=== PATIENT | female | born 2000 | race Two or more races ===

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

== ENCOUNTER 2022-01-30 18:19 | Emergency (ER) | payer MEDICAID ==
[~2022-01-30] VITALS: Ht 162.6 cm; Wt 92.5 kg
[~2022-01-30 18:19] MED LIST: CEPH500C PO
[2022-01-30] MEDS ORDERED: SODIUM CHLORIDE 0.9% 1,000 ML IV ONE (18:30)
[2022-01-30 18:50] LABS: Eosinophils # (auto) 0.1 10 ^3/uL (0-0.8); Hemoglobin 9.3 g/dL (12.2-16.2); Mean Corpuscular Hemoglobin 21.1 pg (28.0-32.0); Mean Corpuscular Volume 68.9 fL (80.0-100.0); Monocytes # (auto) 0.6 10 ^3/uL (0-1.3); White Blood Cell 5.8 10^3/uL (4.4-10.8)
[2022-01-30 18:57] LABS: Basophils # (auto) 0.1 10 ^3/uL (0-0.2); Basophils % (auto) 1.1 % (0.0-2.0); Eosinophils % (auto) 1.4 % (0.0-7.0); Hematocrit 30.3 % (36.0-46.0); Lymphocytes # (auto) 1.7 10 ^3/uL (0.4-5.4); Lymphocytes % (auto) 28.6 % (10.0-50.0); Mean Corpuscular Hgb Conc. 30.7 g/dL (32.0-36.0); Monocytes % (auto) 11.2 % (0.0-12.0); Neutrophils # (auto) 3.3 10 ^3/uL (1.6-8.6); Neutrophils % (auto) 57.7 % (37.0-80.0); Nucleated Red Blood Cells % 0.1 %
[2022-01-30 19:04] LABS: Albumin 3.8 g/dL (3.4-5.0); Calcium 8.3 mg/dL (8.5-10.1); Potassium 4.1 mmol/L (3.5-5.1)
[2022-01-30 19:07] LABS: BUN/Creatinine Ratio 15.5; Bilirubin, Total 0.2 mg/dL (0.2-1.0); Total Protein 7.8 g/dL (6.4-8.2)
[2022-01-30 20:22] LABS: Urine Bacteria NONE SEEN /hpf (None Seen); Urine Blood Negative /uL (Negative); Urine WBC 2 /hpf (0 - 5)
[2022-01-30] MEDS ORDERED: ONDA-144 PO (20:56)
[2022-01-30 23:00] VITALS: BP 136/75
== END 2022-01-30 23:20 | disposition home or self-care (01) ==
LOC: ER 18:19
DX: K52.9 Noninfective gastroenteritis and colitis, unspecified (principal); Z79.899 Other long term (current) drug therapy
CPT/HCPCS: 36415; 80053; 81001; 84702; 85025; 96360; 99283; J7030

== ENCOUNTER 2022-10-10 20:37 | Emergency (ER) | payer MEDICAID ==
[~2022-10-10] VITALS: Ht 162.6 cm; Wt 89.5 kg
[~2022-10-10 20:37] MED LIST changes: +ONDA-144 PO
[2022-10-10 21:47] LABS: Basophils # (auto) 0 10 ^3/uL (0-0.2); Basophils % (auto) 0.3 % (0.0-2.0); Eosinophils # (auto) 0.1 10 ^3/uL (0-0.8); Eosinophils % (auto) 0.9 % (0.0-7.0); Hematocrit 36.9 % (36.0-46.0); Hemoglobin 12.3 g/dL (12.2-16.2); Lymphocytes # (auto) 2.1 10 ^3/uL (0.4-5.4); Lymphocytes % (auto) 28.5 % (10.0-50.0); Mean Corpuscular Hemoglobin 26.4 pg (28.0-32.0); Mean Corpuscular Hgb Conc. 33.4 g/dL (32.0-36.0); Mean Corpuscular Volume 79.1 fL (80.0-100.0); Monocytes # (auto) 0.5 10 ^3/uL (0-1.3); Monocytes % (auto) 6.2 % (0.0-12.0); Neutrophils # (auto) 4.7 10 ^3/uL (1.6-8.6); Neutrophils % (auto) 64.1 % (37.0-80.0); Nucleated Red Blood Cells % 0.1 %; Red Blood Cells 4.66 10^6/uL (4.0-5.20); Red Cell Distribution Width 24.3 % (11.8-14.3); White Blood Cell 7.4 10^3/uL (4.4-10.8)
[2022-10-10 21:59] LABS: Albumin 3.5 g/dL (3.4-5.0); Calcium 8.9 mg/dL (8.5-10.1); Potassium 3.6 mmol/L (3.5-5.1)
[2022-10-10 22:02] LABS: Bilirubin, Total 0.2 mg/dL (0.2-1.0); Total Protein 7.2 g/dL (6.4-8.2)
[2022-10-10 22:23] LABS: Urine Bacteria FEW /hpf (None Seen); Urine Blood Negative /uL (Negative); Urine Mucus FEW (None Seen); Urine Specific Gravity 1.024 (1.001-1.035); Urine WBC 2 /hpf (0 - 5)
[2022-10-11] MEDS ORDERED: NITR-87 PO (00:48)
[2022-10-11 01:43] VITALS: BP 125/67
== END 2022-10-11 01:45 | disposition home or self-care (01) ==
LOC: ER 20:37
DX: O20.0 Threatened abortion (principal); O23.41 Unspecified infection of urinary tract in pregnancy, first trimester; N39.0 Urinary tract infection, site not specified; Z3A.11 11 weeks gestation of pregnancy
CPT/HCPCS: 36415; 76801; 80053; 81001; 84702; 85025; 86850; 86900; 86901

== ENCOUNTER 2023-01-14 08:19 | Emergency (ER) | payer MEDICAID ==
[~2023-01-14] VITALS: Ht 162.6 cm; Wt 94.9 kg
[~2023-01-14 08:19] MED LIST changes: +NITR-87 PO
[2023-01-14 09:20] VITALS: BP 111/63
[2023-01-14] MEDS ORDERED: AZIT4SOL EACHEYE (09:35)
== END 2023-01-14 09:41 | disposition home or self-care (01) ==
LOC: ER 08:19
DX: H10.89 Other conjunctivitis (principal); B96.89 Other specified bacterial agents as the cause of diseases classified elsewhere; Z79.899 Other long term (current) drug therapy

== ENCOUNTER 2023-04-22 20:41 | Observation (INO) | payer MEDICAID ==
[~2023-04-22 20:41] MED LIST changes: +AZIT4SOL EACHEYE; +PREN-96 PO
== END 2023-04-22 22:15 | disposition home or self-care (01) ==
LOC: LDRP 20:41
PROVIDERS: ADMIT Obstetrics & Gynecology; ATTEND Obstetrics & Gynecology
DX: O62.9 Abnormality of forces of labor, unspecified (principal); Z3A.39 39 weeks gestation of pregnancy
CPT/HCPCS: 59025; 81002; 94760; G0378

== ENCOUNTER 2023-04-23 08:28 | Observation (INO) | payer MEDICAID | END 2023-04-23 11:45 | disposition home or self-care (01) | LOC: LDRP 08:28 | PROVIDERS: ADMIT Obstetrics & Gynecology; ATTEND Obstetrics & Gynecology | DX: O62.9 Abnormality of forces of labor, unspecified (principal); Z3A.39 39 weeks gestation of pregnancy; Z79.899 Other long term (current) drug therapy | CPT/HCPCS: 59025; 81002; 82948; G0378 ==

== ENCOUNTER 2023-04-23 13:43 | Inpatient (IN) | payer MEDICAID ==
[~2023-04-23] VITALS: Ht 162.6 cm; Wt 99.8 kg
[2023-04-23] MEDS ORDERED: PENICILLIN G POT 5MIL/D5 50ML 50 ML IV ONE (14:15)
[2023-04-23] MEDS ORDERED: PHISODERM TOP SOLN 240ML BTL TOP PRN (14:15)
[2023-04-23] MEDS ORDERED: LIDOCAINE 2%HCL (LOCAL ANESTH.) INJ 20ML MDV IJ PRN (14:15)
[2023-04-23] MEDS ORDERED: DERMOPLAST 60ML BOTTLE TOP PRN (14:15)
[2023-04-23] MEDS ORDERED: PROMETHAZINE HCL 25 MG/ML 1ML IM PRN (14:15)
[2023-04-23] MEDS ORDERED: PROMETHAZINE HCL 25 MG/ML 1ML IV PRN ×2 (14:15→19:00)
[2023-04-23 15:44] LABS: Basophils # (auto) 0 10 ^3/uL (0-0.2); Basophils % (auto) 0.3 % (0.0-2.0); Eosinophils # (auto) 0 10 ^3/uL (0-0.8); Hemoglobin 12.8 g/dL (12.2-16.2); Lymphocytes # (auto) 0.8 10 ^3/uL (0.4-5.4); Lymphocytes % (auto) 4.4 % (10.0-50.0); Mean Corpuscular Hemoglobin 30.4 pg (28.0-32.0); Mean Corpuscular Hgb Conc. 33.6 g/dL (32.0-36.0); Mean Corpuscular Volume 90.6 fL (80.0-100.0); Monocytes % (auto) 5.3 % (0.0-12.0); Neutrophils # (auto) 17.1 10 ^3/uL (1.6-8.6); Red Cell Distribution Width 13.2 % (11.8-14.3); White Blood Cell 19.1 10^3/uL (4.4-10.8)
[2023-04-23] MEDS ORDERED: fentaNYL CITRATE 100 MCG/2 ML VL IV ONE ×2 (15:45→18:00)
[2023-04-23] MEDS ORDERED: ePHEDrine SULFATE 50 MG/ML AMP IV ONE (15:45)
[2023-04-23] MEDS ORDERED: NALOXONE HCL 0.4 MG/ML VIAL IV ONE (15:45)
[2023-04-23] MEDS ORDERED: ROPIVACAINE HCL 200 ML EPI SCH (15:45)
[2023-04-23] MEDS ORDERED: LACTATED RINGER'S 1,000 ML IV ONE (15:45)
[2023-04-23 15:58] LABS: Alanine Aminotransferase 15 U/L (7-40); Albumin 3.6 g/dL (3.2-4.8); Alkaline Phosphatase 171 U/L (46-116); Anion Gap 8.7 (5-15); Aspartate Aminotransferase 13 U/L (13-40); Calcium 8.9 mg/dL (8.7-10.4); Carbon Dioxide 24.3 mmol/L (20-30); Chloride 103 mmol/L (98-107); Glucose 102 mg/dL (74-106); Sodium 136 mmol/L (136-145)
[2023-04-23 15:59] LABS: Bilirubin, Total 0.7 mg/dL (0.2-1.0)
[2023-04-23] MEDS ORDERED: TERBUTALINE SULFATE 1 MG/ML 1ML VIAL SC PRN (16:00)
[2023-04-23] MEDS ORDERED: LACT. RINGERS/OXYTOCIN 20UNITS 500 ML IV ONE ×2 (16:00→16:30)
[2023-04-23] MEDS ORDERED: LACT. RINGERS/OXYTOCIN 20UNITS 1,000 ML IV SCH (16:00)
[2023-04-23 16:03] LABS: BUN/Creatinine Ratio 8.9 (10.0-20.0); Blood Urea Nitrogen < 5 mg/dL (9-23)
[2023-04-23 16:41] LABS: INR 0.94 (0.9-1.15); Partial Thromboplastin Time 32.3 SEC (24.5-34.5); Prothrombin Time 9.9 sec (9.3-11.8)
[2023-04-23] MEDS: LACTATED RINGER'S 1,000 ML IV SCH ×2 (18:01→21:21)
[2023-04-23 18:45] LABS: Urine Bacteria NONE SEEN /hpf (None Seen); Urine Blood 2+ /uL (Negative); Urine Clarity HAZY (Clear); Urine Color Yellow (Yellow); Urine Mucus FEW (None Seen); Urine Protein, UAD 1+ (Negative); Urine Specific Gravity 1.021 (1.001-1.035); Urine Urobilinogen Normal (Negative); Urine WBC 35 /hpf (0 - 5)
[2023-04-23 18:55] LABS: Amphetamine Screen, Urine Neg (NEGATIVE); Barbiturate Scree,Urine Neg (NEGATIVE); Benzodiazephine Screen, Urine Neg (NEGATIVE); Cannabinoid Screen, Urine Neg (NEGATIVE); Cocaine Screen, Urine Neg (NEGATIVE); Opiate Scree,Urine Neg (NEGATIVE); Phencyclidine Screen, Urine Neg (NEGATIVE)
[2023-04-23] MEDS: WITCH HAZEL-GLYCERIN PAD TOP PRN (18:58)
[2023-04-23 19:33] LABS: Basophils # (auto) 0 10 ^3/uL (0-0.2); Basophils % (auto) 0.1 % (0.0-2.0); Eosinophils # (auto) 0 10 ^3/uL (0-0.8); Hematocrit 37.3 % (36.0-46.0); Hemoglobin 12.4 g/dL (12.2-16.2); Lymphocytes % (auto) 4.5 % (10.0-50.0); Mean Corpuscular Hemoglobin 30.4 pg (28.0-32.0); Mean Corpuscular Hgb Conc. 33.3 g/dL (32.0-36.0); Mean Corpuscular Volume 91.2 fL (80.0-100.0); Monocytes # (auto) 1.1 10 ^3/uL (0-1.3); Monocytes % (auto) 5.1 % (0.0-12.0); Neutrophils # (auto) 19.3 10 ^3/uL (1.6-8.6); Neutrophils % (auto) 90.3 % (37.0-80.0); Red Blood Cells 4.09 10^6/uL (4.0-5.20); Red Cell Distribution Width 12.8 % (11.8-14.3); White Blood Cell 21.4 10^3/uL (4.4-10.8)
[2023-04-23] MEDS ORDERED: MORPHINE SULFATE 4 MG/ML SYR/VIAL IM ONE (21:15)
[2023-04-23] MEDS: ceFAZolin 1GM/50ML 50 ML IV SCH (21:31)
[2023-04-23] MEDS: PENICILLIN G POTASSIUM 2,500,000 UNITS in D5W 5% 50 ML IV SCH (22:45)
[2023-04-24] MEDS ORDERED: ACETAMINOPHEN 325 MG TAB PO PRN ×2 (01:00→06:30)
[2023-04-24] MEDS: LACTATED RINGER'S 1,000 ML IV SCH (01:53)
[2023-04-24] MEDS: PENICILLIN G POTASSIUM 2,500,000 UNITS in D5W 5% 50 ML IV SCH (03:07)
[2023-04-24] MEDS: ceFAZolin 1GM/50ML 50 ML IV SCH (05:32)
[2023-04-24] MEDS ORDERED: ONDANSETRON ODT 4 MG TAB PO PRN (06:30)
[2023-04-24] MEDS ORDERED: IBUPROFEN 600 MG TAB PO PRN (06:30)
[2023-04-24 07:11] LABS: Basophils # (auto) 0.1 10 ^3/uL (0-0.2); Basophils % (auto) 0.6 % (0.0-2.0); Eosinophils # (auto) 0 10 ^3/uL (0-0.8); Hematocrit 34.7 % (36.0-46.0); Hemoglobin 11.9 g/dL (12.2-16.2); Lymphocytes # (auto) 0.8 10 ^3/uL (0.4-5.4); Lymphocytes % (auto) 3.4 % (10.0-50.0); Mean Corpuscular Hemoglobin 30.8 pg (28.0-32.0); Mean Corpuscular Hgb Conc. 34.1 g/dL (32.0-36.0); Mean Corpuscular Volume 90.3 fL (80.0-100.0); Monocytes # (auto) 1.5 10 ^3/uL (0-1.3); Monocytes % (auto) 6.1 % (0.0-12.0); Neutrophils # (auto) 22.2 10 ^3/uL (1.6-8.6); Neutrophils % (auto) 89.9 % (37.0-80.0); Red Blood Cells 3.84 10^6/uL (4.0-5.20); Red Cell Distribution Width 12.8 % (11.8-14.3); White Blood Cell 24.7 10^3/uL (4.4-10.8)
[2023-04-24 11:01] VITALS: BP 90/54; PULSE 84; RESP 16; TEMP 98.6; O2SAT 95
[2023-04-24] MEDS ORDERED: PIPERACILLIN-TAZOB 3.375GM 100 ML IV SCH (12:00)
[2023-04-24 14:59] VITALS: BP 88/51; PULSE 85; RESP 16; TEMP 98.8; O2SAT 99
[2023-04-24] MEDS ORDERED: SODIUM CHLORIDE 0.9% 1,000 ML IV ONE (15:15)
[2023-04-24 15:21] VITALS: BP 94/53
[2023-04-24 15:32] VITALS: TEMP 98.1
[2023-04-24 19:00] VITALS: BP 99/42; PULSE 77; RESP 18; TEMP 97.9; O2SAT 97
[2023-04-24 20:12] LABS: COVID19 ANTIGEN SOFIA FIA NEGATIVE (NEGATIVE)
[2023-04-24] MEDS: PIPERACILLIN-TAZOB 3.375GM 100 ML IV SCH (21:56)
[2023-04-24 22:33] LABS: Basophils # (auto) 0 10 ^3/uL (0-0.2); Basophils % (auto) 0.2 % (0.0-2.0); Eosinophils # (auto) 0 10 ^3/uL (0-0.8); Eosinophils % (auto) 0.1 % (0.0-7.0); Hematocrit 33.3 % (36.0-46.0); Lymphocytes # (auto) 2.5 10 ^3/uL (0.4-5.4); Lymphocytes % (auto) 13.6 % (10.0-50.0); Mean Corpuscular Hgb Conc. 33.1 g/dL (32.0-36.0); Mean Corpuscular Volume 90.7 fL (80.0-100.0); Monocytes # (auto) 1.6 10 ^3/uL (0-1.3); Neutrophils % (auto) 77.1 % (37.0-80.0); Nucleated Red Blood Cells % 0.1 %; Red Blood Cells 3.67 10^6/uL (4.0-5.20); Red Cell Distribution Width 13.1 % (11.8-14.3); White Blood Cell 18.1 10^3/uL (4.4-10.8)
[2023-04-24 22:45] VITALS: BP 125/66; PULSE 83; RESP 20; TEMP 98.1
[2023-04-25 03:10] VITALS: PULSE 76; RESP 16; TEMP 98.2; O2SAT 97
[2023-04-25] MEDS: WITCH HAZEL-GLYCERIN PAD TOP PRN (03:49)
[2023-04-25 05:07] LABS: RPR Non Reactive (Non Reactive)
[2023-04-25] MEDS: PIPERACILLIN-TAZOB 3.375GM 100 ML IV SCH (05:39)
[2023-04-25 06:42] VITALS: BP 99/51; PULSE 85; RESP 16; TEMP 98.1; O2SAT 99
[2023-04-25 07:10] LABS: Basophils # (auto) 0.1 10 ^3/uL (0-0.2); Basophils % (auto) 0.6 % (0.0-2.0); Eosinophils # (auto) 0.1 10 ^3/uL (0-0.8); Eosinophils % (auto) 0.6 % (0.0-7.0); Hematocrit 33.3 % (36.0-46.0); Hemoglobin 11.2 g/dL (12.2-16.2); Lymphocytes # (auto) 2.9 10 ^3/uL (0.4-5.4); Lymphocytes % (auto) 20.9 % (10.0-50.0); Mean Corpuscular Hemoglobin 30.3 pg (28.0-32.0); Mean Corpuscular Hgb Conc. 33.6 g/dL (32.0-36.0); Mean Corpuscular Volume 90.3 fL (80.0-100.0); Monocytes # (auto) 1.3 10 ^3/uL (0-1.3); Monocytes % (auto) 9.5 % (0.0-12.0); Neutrophils # (auto) 9.4 10 ^3/uL (1.6-8.6); Neutrophils % (auto) 68.4 % (37.0-80.0); Nucleated Red Blood Cells % 0.1 %; Red Blood Cells 3.69 10^6/uL (4.0-5.20); Red Cell Distribution Width 12.9 % (11.8-14.3); White Blood Cell 13.7 10^3/uL (4.4-10.8)
[2023-04-25 21:06] LABS: Treponema pallidum Ab (FTA-Ab) Non Reactive (Non Reactive)
== END 2023-04-25 09:30 | disposition home or self-care (01) | DRG 560 ==
LOC: OBSVTOIN 13:43 → LDRP 13:43
PROVIDERS: ADMIT Obstetrics & Gynecology; ATTEND Obstetrics & Gynecology
PROC: 10E0XZZ Delivery of Products of Conception, External Approach (ICD-10-PCS; principal; 2023-04-24)
PROC: 10907ZC Drainage of Amniotic Fluid, Therapeutic from Products of Conception, Via Natural or Artificial Opening (ICD-10-PCS; 2023-04-24)
DX: O99.824 Streptococcus B carrier state complicating childbirth (principal); Z37.0 Single live birth; O70.9 Perineal laceration during delivery, unspecified; Z20.822 Contact with and (suspected) exposure to COVID-19; Z3A.39 39 weeks gestation of pregnancy
CPT/HCPCS: 36415; 59025; 59409; 80053; 80307; 81001; 81002; 83605; 85025; 85610; 85730; 86592; 86850; 86900; 86901; 87426; 94760; 96360; 96361; 96365; 96366; 96372; 96374; G0378; J0690; J2540; J2543; J2590; J7060

== ENCOUNTER 2023-10-03 10:25 | Emergency (ER) | payer MEDICAID ==
[~2023-10-03] VITALS: Ht 162.6 cm; Wt 92.7 kg
[2023-10-03 10:44] VITALS: BP 121/80; PULSE 85; RESP 17; TEMP 97.3; O2SAT 94
[2023-10-03] MEDS: KETOROLAC TROMETH 30 MG/ML 1ML VIAL IM ONE (11:00)
[2023-10-03 12:20] LABS: COVID19 ANTIGEN SOFIA FIA NEGATIVE (NEGATIVE)
[2023-10-03 12:21] LABS: Rapid Influenza A Negative (Negative); Rapid Influenza B Negative (Negative)
[2023-10-03] MEDS ORDERED: ZOFR4T PO (12:27)
[2023-10-03] MEDS ORDERED: IBUP-1455 PO (12:33)
[2023-10-03] MEDS ORDERED: ONDANSETRON ODT 4 MG TAB PO ONE (12:45)
== END 2023-10-03 12:49 | disposition home or self-care (01) ==
LOC: ER 10:25
DX: I88.0 Nonspecific mesenteric lymphadenitis (principal); R51.9 Headache, unspecified; R11.2 Nausea with vomiting, unspecified; Z20.822 Contact with and (suspected) exposure to COVID-19
CPT/HCPCS: 36415; 74176; 87426; 87804; 96372; 99285; J1885